=== PATIENT | male | born 1955 | race Native Hawaiian/Other Pacific Islander ===

== ENCOUNTER 2018-06-19 19:00 | Emergency (ER) | payer OTHER ==
[~2018-06-19] VITALS: Ht 180.3 cm; Wt 68.0 kg
[2018-06-19 20:06] LABS: PLATELET COUNT 186 K/uL (142-355)
[2018-06-19 20:25] LABS: POTASSIUM 4.1 mmol/L (3.6-5.2)
[2018-06-19 20:55] VITALS: BP 119/67; TEMP 97.6
[2018-06-19] MEDS ORDERED: CITALOPRAM20 M1 PO (21:13)
[2018-06-19] MEDS ORDERED: AMLODIPINE BESYLATE PO (21:13)
[2018-06-19] MEDS ORDERED: DIVA125C PO ×2 (21:14)
[2018-06-19] MEDS ORDERED: MELATONIN3 M1 PO (21:15)
[2018-06-19] MEDS ORDERED: OLANZAPINE2.5 MG PO ×2 (21:16→21:27)
[2018-06-19] MEDS ORDERED: NEXIUM40 M1 PO (21:16)
[2018-06-19] MEDS ORDERED: TEARS PURE OPTH (21:18)
[2018-06-19] MEDS ORDERED: HALO5TAB10 PO ×2 (21:19→21:22)
[2018-06-19] MEDS ORDERED: HALO5INJ3 IM (21:21)
[2018-06-19] MEDS ORDERED: IBU400 MG PO (21:23)
[2018-06-19] MEDS ORDERED: [UNRECOGNIZED DRUG - OTHER] EX ×2 (21:24→21:25)
[2018-06-19] MEDS ORDERED: NICODERM C21 MG/241 TD (21:26)
[2018-06-19] MEDS ORDERED: MIRALAX3350 N1 PO (21:26)
[2018-06-19] MEDS ORDERED: [UNRECOGNIZED DRUG - OTHER] PO (21:28)
== END 2018-06-19 20:55 | disposition other institution (70) ==
LOC: ED 19:07
PROVIDERS: Family Medicine
DX: Z00.8 Encounter for other general examination (principal); F32.89 Other specified depressive episodes; F03.90 Unspecified dementia, unspecified severity, without behavioral disturbance, psychotic disturbance, mood disturbance, and anxiety
CPT/HCPCS: 36415; 80053; 81000; 85027; 93005; 99285